=== PATIENT | male | born 1945 | race Caucasian/White ===

== ENCOUNTER 2020-05-02 13:29 | Inpatient (IN) | payer MEDICAID, MEDICARE ==
[~2020-05-02] VITALS: Ht 170.2 cm; Wt 67.9 kg
[~2020-05-02 13:29] MED LIST: ASCO500T9 PO; ESCI20TA10 PO; FURO-93 PO; HYDROCODONE; LEVO750T26 PO; LISI-167 PO; LISI5TAB7 PO; METO25TA35 PO; OXYM15SP8 NAS; SIMV20TA19 PO
[2020-05-02] MEDS ORDERED: EPINEPHRINE SYRINGE 0.1 MG/ML, 10ML ONE ×2 (13:36→13:37)
--- NOTE | 2020-05-02 13:40 | NUR ---
FSBS CHECKED AT BEDSIDE PER DR. BRICENO, RESULTS 97 CHARTED, MD AWARE AT BEDSIDE. PT TRENDE[place]BURG POSITION. IVF INFUSING PER ORDER WITH PRESSURE BAG. MD ADMIN EPI 0.01MG (10MCG) IV AT BEDSIDE FOR BP. 2ND PIV PLACED BY JOVON ANDERSON, 20G RFA. SR ON MONITOR.
--- NOTE | 2020-05-02 13:58 | NUR ---
DR. BRICENO ADMIN EPI 0.01MG AT THIS TIME AT BEDSIDE, BP S/P EPI 99/54 HR 55
[2020-05-02] MEDS ORDERED: SODIUM CHLORIDE 0.9% 1,000ML IVBOLUS ONE (14:00)
[2020-05-02] MEDS ORDERED: EPINEPHRINE SYRINGE 0.1 MG/ML, 10ML IVPush ONE ×2 (14:00→16:30)
--- NOTE | 2020-05-02 14:02 | NUR ---
BP 82/41 HR 68, DR. BRICENO REMAINS AT BEDSIDE, ADMIN EPI 0.01MG (10MCG) AT THIS TIME.
--- NOTE | 2020-05-02 14:05 | NUR ---
PHARMACY CALLED AND NOREPINEPHRINE REQUESTED FROM PHARMACY
--- NOTE | 2020-05-02 14:10 | NUR ---
BP 62/34, HR 60. DR. BRICENO REMAINS AT BEDSIDE, MD ADMIN 20 MCG EPI IV AT THIS TIME. BP S/P EPI ADMIN BY 96/51 HR 60
--- NOTE | 2020-05-02 14:20 | NUR ---
PHARMACY CALLEDX2 NOREPINEPHRINE REQUESTED FROM PHARMACY
[2020-05-02] MEDS ORDERED: SODIUM CHLORIDE 0.9%, 500ML IVBOLUS ONE (14:30)
[2020-05-02] MEDS ORDERED: PLEASE ENTER HEIGHT AND WEIGHT MC SCH (14:30)
[2020-05-02] MEDS ORDERED: NOREPINEPHRINE 8 MG in SODIUM CHLORIDE 0.9% 242 ML IV PRN (14:30)
--- NOTE | 2020-05-02 14:32 | NUR ---
DR. BRICENO AT BEDSIDE ADMIN 20MCG EPI IV, BP 58/29 HR 71
[2020-05-02 14:35] LABS: BASOPHILS # (AUTO) 0.01 x10^3/uL (0-0.1); BASOPHILS % (AUTO) 0 % (0-1); EOSINOPHILS % (AUTO) 7 % (1-7); LYMPHOCYTES # (AUTO) 1.87 x10^3/uL (1-3.4); LYMPHOCYTES % (AUTO) 23 % (22-44); MD NO; MEAN CORPUSCULAR HEMOGLOBIN 31.8 pg (27.5-34.5); MEAN CORPUSCULAR HGB CONC 32.3 g/dL (33.2-36.2); MEAN PLATELET VOLUME 7.9 fL (7.4-10.4); MONOCYTES % (AUTO) 9 % (2-9); NEUTROPHILS # (AUTO) 5.11 x10^3/uL (1.8-6.8); NEUTROPHILS % (AUTO) 62 % (42-75); PLATELET COUNT 206 x10^3/uL (130-400); RED CELL DISTRIBUTION WIDTH 13.8 % (9.4-14.8)
--- NOTE | 2020-05-02 14:35 | NUR ---
BP 99/62 S/P EPI ADMIN BY DR. BRICENO AND LEVOPHED. PT RESPONSIVE TO VERBAL STIMULI, PROVIDING MEDICAL/SURGICAL HISTORY. ORIENTED X4 TO SELF, PLACE, PRESIDENT, TIME. SR ON MONITOR. VSS. AWAITING ADDITIONAL ORDERS.
[2020-05-02 14:43] LABS: INTERNATIONAL NORMALIZED RATIO 0.98 (0.93-1.1); PROTHROMBIN TIME 10.4 Seconds (9.6-11.5)
--- NOTE | 2020-05-02 14:44 | NUR ---
LEVOPHED TITRATED PER ORDER FOR HYPOTENSION, MAP <60. HR 55-60 ON MONITOR, SB. DISCUSSED WITH DR. BRICENO AWARE.
[2020-05-02 14:45] LABS: ALANINE AMINOTRANSFERASE 12 U/L (12-78); ALBUMIN 2.6 g/dL (3.4-5.0); ANION GAP 9 mmol/L (5-15); CALCIUM 7.9 mg/dL (8.5-10.1); CHLORIDE 110 mmol/L (98-107); CREATININE 2.03 mg/dL (0.7-1.3)
[2020-05-02 14:50] LABS: ALKALINE PHOSPHATASE 51 U/L (45-117); BILIRUBIN,TOTAL 0.5 mg/dL (0.2-1.0); TOTAL PROTEIN 5.5 g/dL (6.4-8.2); TROPONIN I 0.021 ng/mL (0.000-0.045)
--- NOTE | 2020-05-02 14:53 | NUR ---
DR. BRICENO AT BEDSIDE FOR EVAL, PT WITH NOTED WORK OF BREATHING, BRADYCARDIAC RATE 39-59. PT PLACED IN SEMI-FOWLERS, HOB 45 DEGRESS PER MD, NO LONGER TRENDE[place]G. NO NEW ORDERS RECEIVED AT THIS TIME, MD AWARE OF HR.
[2020-05-02] MEDS ORDERED: DOXYCYCLINE 100 MG in DEXTROSE 5% 250 ML IV SCH (15:00)
[2020-05-02] MEDS ORDERED: CEFTRIAXONE PMX 1GM/50ML 50 ML ONE (15:04)
--- NOTE | 2020-05-02 15:05 | NUR ---
DR. BRICENO AT BEDSIDE FOR EVAL. BP IMPROVING 147/51 HR 35-50, SB ON MONITOR. DR. BRICENO AWARE, NO NEW ORDERS RECEIVED, PT TO BE ADMITTED TO ICU. PT CONTINUES TO RESPOND TO VERBAL STIMULI. REMAINS DROWSY, ORIENTEDX4. WORK OF BREATHING IMPROVED WITH POSITION CHANGE, HOB REMAINS 45 DEGREES
--- NOTE | 2020-05-02 15:10 | NUR ---
IV ABX ADMIN PER ORDER ON IV PUMP, VERIFIED BLOOD CULTURES DRAWN X2 PRIOR TO ADMIN. DR. BRICENO AND ADMITTING PROVIDER DR. RUEDA AT BEDSIDE. BP 127/46 HR 35-46, MD DISCUSSING POC AND MEDICATION MGMT. SB ON MONITOR. VITALS OTHERWISE STABLE. TO PLACE CENTRAL LINE PER DR. BRICENO AND DR. RUEDA, SETTING UP FOR PROCEDURE. INFORMED CONSENT GIVEN TO PT BY BOTH MD'S, VERBALIZED UNDERSTANDING AND AGREES TO POC.
--- NOTE | 2020-05-02 15:22 | NUR ---
DR. BRICENO AT BEDSIDE, CENTRAL LINE CONSENT SIGNED BY DR. BRICENO, THIS RN AND JOVON Beck RN. EMERGENT PLACEMENT PER DR. BRICENO AND DR. RUEDA. PT UNABLE TO SIGN PER PROVIDERS
--- NOTE | 2020-05-02 15:25 | NUR ---
DOPAMINE REQUESTED FROM PHARMACY, ONCE RECEIVED TO STOP LEVOPHED AND START DOPAMINE. LEVOPHED TO CONTINUE INFUSING NOTED IN EMAR AT THIS TIME
[2020-05-02] MEDS ORDERED: ACETAMINOPHEN 325 MG TABLET PO PRN (15:30)
[2020-05-02] MEDS ORDERED: BISACODYL 10 MG SUPP PR PRN (15:30)
[2020-05-02] MEDS ORDERED: POLYETHYLENE GLYCOL 17 GM PACKET PO PRN (15:30)
[2020-05-02] MEDS ORDERED: DOPAMINE 400 MG in SODIUM CHLORIDE 0.9% 240 ML IV PRN (15:30)
[2020-05-02] MEDS ORDERED: OXYcodone IR 5MG TABLET PO PRN (15:30)
[2020-05-02] MEDS ORDERED: DOPAMINE/D5W PMX 250 ML IV PRN ×2 (15:30)
[2020-05-02] MEDS ORDERED: ONDANSETRON 2MG/ML, 2ML IVPush PRN (15:30)
--- NOTE | 2020-05-02 15:37 | NUR ---
DR. BRICENO AT BEDSIDE FOR CENTRAL LINE PLACEMENT. DISCUSSED VITALS WITH ERP, AWARE. NO NEW ORDERS RECEIVED.
[2020-05-02] MEDS ORDERED: CEFTRIAXONE PMX 1GM/50ML 50 ML IV ONE (16:00)
--- NOTE | 2020-05-02 16:00 | NUR ---
CENTRAL LINE PLACEMENT COMPLETED BY DR. BRICENO IN RIGHT IG WITH ANTIMICROBIAL PATCH AND STERILE DRESSING IN PLACE.
[2020-05-02] MEDS: CEFTRIAXONE PMX 1GM/50ML 50 ML IV SCH (16:04)
[2020-05-02] MEDS: DOXYCYCLINE 100 MG in DEXTROSE 5% 250 ML IV SCH ×2 (16:05→17:43)
--- NOTE | 2020-05-02 16:11 | NUR ---
CXR ORDERED, AWAITING CENTRAL LINE PLACEMENT VERIFICATION THEN TO START DOPAMINE ON CENTRAL LINE PER DR. BRICENO
--- NOTE | 2020-05-02 16:15 | NUR ---
RAD AT BESIDE
--- NOTE | 2020-05-02 16:17 | NUR ---
VIBRAMYCIN REQUESTED FROM PHARMACY
[2020-05-02] MEDS: SODIUM CHLORIDE 0.9% 1,000 ML IV SCH ×2 (16:19→21:25)
--- NOTE | 2020-05-02 16:32 | NUR ---
LEVOPHED DISCONTINUED AT THIS TIME PER DR. BRICENO AND DR. RUEDA. DOPAMINE INFUSING PER MD ORDER NOTED IN EMAR ON IV PUMP. VSS. SR ON MONITOR, RATE 65-80.
--- NOTE | 2020-05-02 16:35 | NUR ---
PHARMACY CALLED X2 FOR VIBRAMYCIN
--- NOTE | 2020-05-02 16:44 | NUR ---
PT MORE ALERT AND TALKATIVE, STATES "I'M FEELING SO MUCH BETTER." DENIES ANY PAIN, CP, SOB. VSS. SR ON MONITOR. RATE 82-100. BP STABLE. PT STRAIGHT CATHED PER DR. BRICENO AT THIS TIME, SPECIMEN COLLECTED AND WALKED TO LAB. PT WITH 1100ML URINE OUTPUT. TOLERATED CATH WELL. RESTING COMFORTABLY. FALL PRECUATIONS IN PLACE. SIDE RAILS UPX2.
--- NOTE | 2020-05-02 17:07 | NUR ---
PHARMACY CALLEDX3 FOR IV ANTIBIOTIC. DISCUSSED VITALS SIGNS WITH DR. BRICENO, AT BEDSIDE FOR EVALUATION. PT ST ON MONITOR, RATE 99-105, BP 75/39. LEVOPHED RESTARTED NOTED IN EMAR PER ERP. DOPAMINE CONTINUES INFUSING NOTED IN EMAR WELL PER ERP.
[2020-05-02 17:09] LABS: MICROSCOPIC NOT IND
--- NOTE | 2020-05-02 17:20 | NUR ---
BP IMPROVING WITH LEVOPHED AND DOPAMINE RUNNING DISCUSSED WITH ERP DR. BRICENO. VSS. RESTING COMFORTABLY. REMAINS A&OX4. DENIES ANY PAIN AND NEED TO USE RESTROOM. CALL LIGHT IN REACH. FALL PRECUATIONS IN PLACE. PT IS CCU HOLD IN ER, AWAITING ROOM ASSIGNMENT
[2020-05-02] MEDS ORDERED: ENOXAPARIN 40 MG/0.4 ML ONE (18:06)
[2020-05-02] MEDS: ENOXAPARIN 40 MG/0.4 ML SQ SCH (18:08)
--- NOTE | 2020-05-02 18:09 | NUR ---
PT SIGNIFICANT OTHER ARRIVED, AT BEDSIDE PER ERP OKAY. DR. BRICENO AT BEDSIDE DISCUSSING POC WITH PT AND PT SIGNIFICANT OTHER, VERBALIZED UNDERSTANDING, AGREE TO POC. PT REMAINS CCU HOLD. AWAITING HOSPITAL BED FOR COMFORT, REQUESTED AT 1700. PT REPOSITIONS SELF NEEDED FOR COMFORT. PILLOW IN PLACE AND WARM BLANKETS. VSS. SR ON MONITOR. CALL LIGHT IN REACH. FALL PRECAUTIONS IN PLACE.
[2020-05-02] MEDS ORDERED: GABA800T5 PO (18:20)
[2020-05-02] MEDS ORDERED: ATOR10TA9 PO (18:20)
[2020-05-02] MEDS ORDERED: TIZA2CAP PO (18:20)
[2020-05-02] MEDS ORDERED: ATOR10TA PO (18:20)
--- NOTE | 2020-05-02 18:22 | NUR ---
PT RESTING COMFORTABLY. DOZING INTERMITTENTLY, AROUSES TO VERBAL STIMULI. REMAINS ORIENTED X4. VSS. SR ON MONITOR. HOUSEKEEPING/CENTRAL CALLED X2 FOR HOSPITAL BED, PT REMAINS CCU HOLD. FAMILY AT BEDSIDE
--- NOTE | 2020-05-02 18:43 | NUR ---
SIGNIFICANT OTHER ARAMIS [phone], REQUESTING WE PLEASE CALL WILL ANY UPDATES AND ONCE HE IS MOVED TO CCU FROM ER.
--- NOTE | 2020-05-02 18:55 | NUR ---
BEDSIDE REPORT AND TRANSFER OF CARE TO PAT RN AT THIS TIME
--- NOTE | 2020-05-02 19:12 | NUR ---
report from christiana, assumed care of pt pt in [facility] at this time, dopamine and levophed running and maintanance fluids, awaiting bed in icu at this time
--- NOTE | 2020-05-02 19:49 | NUR ---
pt used the bed farias, pt in nad at this time
--- NOTE | 2020-05-02 20:11 | NUR ---
report to titus in icu transport to icu with mariia and rn
[2020-05-02 20:48] VITALS: BP 142/75
[2020-05-03 04:00] VITALS: BP 114/72
[2020-05-03 04:39] LABS: BASOPHILS # (AUTO) 0.03 x10^3/uL (0-0.1); BASOPHILS % (AUTO) 0 % (0-1); EOSINOPHILS # (AUTO) 0.48 x10^3/uL (0-0.4); EOSINOPHILS % (AUTO) 6 % (1-7); LYMPHOCYTES # (AUTO) 1.57 x10^3/uL (1-3.4); LYMPHOCYTES % (AUTO) 19 % (22-44); MD NO; MEAN CORPUSCULAR HEMOGLOBIN 31.6 pg (27.5-34.5); MEAN CORPUSCULAR HGB CONC 32.3 g/dL (33.2-36.2); MEAN PLATELET VOLUME 7.8 fL (7.4-10.4); MONOCYTES # (AUTO) 0.58 x10^3/uL (0.2-0.8); MONOCYTES % (AUTO) 7 % (2-9); NEUTROPHILS # (AUTO) 5.77 x10^3/uL (1.8-6.8); NEUTROPHILS % (AUTO) 68 % (42-75); PLATELET COUNT 214 x10^3/uL (130-400); RED CELL DISTRIBUTION WIDTH 13.9 % (9.4-14.8)
[2020-05-03 04:47] LABS: CHLORIDE 118 mmol/L (98-107)
[2020-05-03 04:54] LABS: ALANINE AMINOTRANSFERASE 11 U/L (12-78); ALBUMIN 2.7 g/dL (3.4-5.0); ALKALINE PHOSPHATASE 57 U/L (45-117); ANION GAP 4 mmol/L (5-15); BILIRUBIN,TOTAL 0.4 mg/dL (0.2-1.0); CALCIUM 8.5 mg/dL (8.5-10.1); CREATININE 1.27 mg/dL (0.7-1.3); TOTAL PROTEIN 5.6 g/dL (6.4-8.2)
[2020-05-03] MEDS: SENNA/DOCUSATE TABLET PO SCH (08:38)
[2020-05-03] MEDS: ESCITALOPRAM 10MG TABLET PO SCH (08:38)
[2020-05-03] MEDS: SODIUM CHLORIDE 0.9% 1,000 ML IV SCH (08:40)
[2020-05-03 12:53] VITALS: BP 158/88
[2020-05-03] MEDS: CEFTRIAXONE PMX 1GM/50ML 50 ML IV SCH (15:30)
[2020-05-03] MEDS: ENOXAPARIN 40 MG/0.4 ML SQ SCH (16:18)
[2020-05-03] MEDS: DOXYCYCLINE 100 MG in DEXTROSE 5% 250 ML IV SCH (16:18)
[2020-05-03 18:48] VITALS: BP 158/96
[2020-05-04 00:12] VITALS: BP 138/97
[2020-05-04] MEDS: DOXYCYCLINE 100 MG in DEXTROSE 5% 250 ML IV SCH ×2 (03:16→15:29)
[2020-05-04 06:46] VITALS: BP 153/96
[2020-05-04] MEDS: ESCITALOPRAM 10MG TABLET PO SCH (10:09)
[2020-05-04] MEDS: SENNA/DOCUSATE TABLET PO SCH (10:09)
[2020-05-04 12:59] VITALS: BP 139/97
[2020-05-04] MEDS ORDERED: CEFD300C37 PO (14:18)
[2020-05-04] MEDS ORDERED: DOXY100T PO (14:18)
[2020-05-04] MEDS: ENOXAPARIN 40 MG/0.4 ML SQ SCH (16:28)
[2020-05-04] MEDS: CEFTRIAXONE PMX 1GM/50ML 50 ML IV SCH (16:28)
== END 2020-05-04 18:36 | disposition home or self-care (01) | DRG 871 ==
LOC: ED 15:09 → EDIP 15:10 → ED 15:28 → CCU 20:20 → 3N 05-03 12:52
PROVIDERS: ADMIT Internal Medicine; ATTEND Internal Medicine
PROC: 0T9B70Z Drainage of Bladder with Drainage Device, Via Natural or Artificial Opening (ICD-10-PCS; principal; 2020-05-02)
PROC: 02HV33Z Insertion of Infusion Device into Superior Vena Cava, Percutaneous Approach (ICD-10-PCS; 2020-05-02)
DX: A41.9 Sepsis, unspecified organism (principal); J18.9 Pneumonia, unspecified organism; J96.91 Respiratory failure, unspecified with hypoxia; E43 Unspecified severe protein-calorie malnutrition; N17.0 Acute kidney failure with tubular necrosis; G93.40 Encephalopathy, unspecified; B19.20 Unspecified viral hepatitis C without hepatic coma; Z68.23 Body mass index [BMI] 23.0-23.9, adult; E78.5 Hyperlipidemia, unspecified; E86.1 Hypovolemia; G89.29 Other chronic pain; I11.0 Hypertensive heart disease with heart failure; I35.0 Nonrheumatic aortic (valve) stenosis; I50.9 Heart failure, unspecified; M19.90 Unspecified osteoarthritis, unspecified site; N20.0 Calculus of kidney; Z86.73 Personal history of transient ischemic attack (TIA), and cerebral infarction without residual deficits; Z87.442 Personal history of urinary calculi; Z90.5 Acquired absence of kidney; Z95.2 Presence of prosthetic heart valve; F64.9 Gender identity disorder, unspecified
CPT/HCPCS: 36415; 36556; 71045; 80053; 81003; 82962; 83605; 83735; 83880; 84100; 84145; 84443; 84484; 85025; 85610; 85730; 87040; 87081; 93005; 96365; 96366; 96368; 96375; 99292; G0378; J0696; J1265; J1650; J7060; J7030; J7040; J7050